=== PATIENT | male | born 1940 | race Caucasian/White ===

== ENCOUNTER 2016-12-12 17:12 | Emergency (ER) | payer MEDICARE ==
[~2016-12-12] VITALS: Ht 182.9 cm; Wt 95.2 kg
[~2016-12-12 17:12] MED LIST: ASPIRIN EC81 MG PO; CALCIUM 500 MG1 EAC1 PO; COZAAR25 MG PO; DAILY MULTIPLE1 EACH PO; FISH OIL 1,0001 EAC2 NG; GLUCOSAMINE1000 MG PO; ICAPS AREDS SO1 EACH PO; LIPITOR20 MG PO; OMEPRAZOLE20 MG PO; VITAMIN D5000 UNIT PO
[2016-12-12] MEDS ORDERED: FINASTERIDE5 MG PO (17:37)
[2016-12-12] MEDS ORDERED: NORCO 5-325 TA1 EACH PO (20:01)
[2017-01-11] MEDS ORDERED: ULTRAM50 MG PO (13:13)
== END 2016-12-12 20:10 | disposition home or self-care (01) ==
LOC: ED 17:12
DX: N13.2 Hydronephrosis with renal and ureteral calculous obstruction (principal); Z88.1 Allergy status to other antibiotic agents; Z88.8 Allergy status to other drugs, medicaments and biological substances; Z79.899 Other long term (current) drug therapy; Z79.82 Long term (current) use of aspirin
CPT/HCPCS: 74176; 80053; 81001; 85025; 96361; 96374; 96375; 99284; J1885; J2405; J7030

== ENCOUNTER 2017-01-31 07:20 | Day surgery (SDC) | payer MEDICARE ==
[~2017-01-31] VITALS: Ht 182.9 cm; Wt 97.5 kg
[~2017-01-31 07:20] MED LIST changes: +FINASTERIDE5 MG PO; +NORCO 5-325 TA1 EACH PO; +ULTRAM50 MG PO
[2017-01-31] MEDS ORDERED: IBUPROFEN600 MG PO (11:25)
[2017-01-31] MEDS ORDERED: OXYCODON-ACETA1 EAC2 PO (11:26)
[2017-01-31] MEDS ORDERED: MAPAP325 MG PO (11:26)
--- NOTE | 2017-01-31 11:26 | NUR ---
01/31/17 1126 Lisa Blackwell PT O2 100%, O2 DECREASED TO 6L VIA MASK
--- NOTE | 2017-01-31 12:19 | NUR ---
LE 1145 PT RETURNED FROM PACU WIDE AWAKE C/O 4/10 PAIN IN R GROIN. 1200 NEW ORDERS RECEIVED. 1201 DILAUDID 0.5MG GIVEN IVP. PT DRINKING WATER AND EATING CRACKERS/JELLO. 1219 TWO PERCOCET 7.5/325 GIVEN PO. WARM AIR ON PER PT REQUEST.
--- NOTE | 2017-01-31 13:33 | NUR ---
PT UP TO SIT ON SIDE OF BED TO VOID 450ML, CLEAR YELLOW. NO C/OS. PAIN IS BETTER. PO FLUIDS AND CRACKERS AND JELLO GIVEN
--- NOTE | 2017-01-31 13:59 | NUR ---
SOUP GIVEN. MORE ICED WATER GIVEN. HOB ELEVATED. PT SITTING UP IN BED EATING SOUP. SPOUSE @ BS. MABLE TALLEY CONTINUES ON WARM.
--- NOTE | 2017-01-31 14:48 | NUR ---
PT LAYING IN BED, WITH CHINO IN SUPPORT. THEY BOTH SEEMED PREPARED, FEW QUESTIONS. PT REQUESTED PRAYER, WILL FOLLOW ASNEDED
--- NOTE | 2017-01-31 15:31 | NUR ---
LE 1425: PT REQUESTS DC HOME. DC INSTRUCTIONS GIVEN TO PT IN PRESENCE OF SPOUSE AND BOTH VERBALIZE UNDERSTANDING. PT DRESSES SELF AFTER STANDING AT BS AND DENYING DIZZINESS. PT TRANSFERS SELF WELL TO AND IS DC HOME BY TIFFANIE PALAFOX RN VIA .
--- NOTE | 2017-02-01 08:54 | OR ---
[facility] [address] [place], [place] [address] Signed DATE OF OPERATION: 01/31/2017 SURGEON: Aparna Fry MD PREOPERATIVE DIAGNOSIS: Right inguinal hernia. POSTOPERATIVE DIAGNOSIS: Right direct inguinal hernia. PROCEDURE: Repair of right direct inguinal hernia with implantation of Prolene mesh (underlay technique). SURGEON: Aparna Fry MD. ANESTHESIA: General LMA (Pastora Altamirano CRNA) and 10 mL of 0.25% Marcaine with epinephrine local. INDICATION: This 76-year-old, retired [place] is a patient of Dr. Raudel Dominique and noted to have a reducible right inguinal hernia. He has had prostate cancer treatment in the past. He is not having obstructive symptoms with urination at this time. His hernia is reducible and increasingly uncomfortable. He is admitted to undergo repair. The risks of bleeding, infection, recurrence, pain problems, and other unforeseen complications were reviewed in detail. He understands and wished to proceed. FINDINGS: Rather broad-based direct hernia was noted. The cord structures were normal. An ilioinguinal nerve was identified and preserved. Implantation of Prolene mesh in an underlay technique allowed for repair of the hernia. The hernia defect was invaginated into the properitoneal space. There was no sign of incarceration. PROCEDURE: The patient was brought to the operating room, given a general anesthetic by LMA technique. Preoperative antibiotic Ancef was given. Sequential compression device stockings used and heparin subcutaneously administered. The lower abdomen was clipped and prepared with a chlorhexidine solution and draped sterilely. Incision made cephalad to the pubic tubercle on the right side. Dissection was carried through the subcutaneous tissue, which was rather generous. External oblique was incised along its fibers revealing the underlying cord and a bulky type hernia. Ilioinguinal nerve branch was dissected free from the cremasteric muscles of the cord and reflected around the external Electronically Signed By: APARNA FRY MD 02/01/17 0854 PATIENT NAME: АЛЕКСАНДР GALEANA OPERATIVE REPORT DATE OF : 40 PHYSICIAN: APARNA FRY MD REPORT #: [id number] REPORT IS CONFIDENTIAL AND NOT TO BE RELEASED WITHOUT AUTHORIZATION [facility] [address] [place], [place] [address] Signed oblique laterally. Using blunt dissection, cord was mobilized from the floor and encircled with a Kay drain. There was attenuation of the floor contiguous with the cord structure. On that basis, the cremasteric muscle fibers of the cord were incised transversely revealing the hernia sac proper, which was basically a broad-based direct hernia. This was freed completely. There was no sign of indirect hernia sac. Using electrocautery, the attenuated fibers of the fascia of the transversalis were incised and the properitoneal space bluntly developed. A segment of Prolene mesh was cut to the appropriate configuration and secured in an underlay technique with interrupted 2-0 Prolene sutures including the shelving edge of Poupart's ligament laterally and tendon of the transversus abdominis medially. Wide overlap was accomplished. A defect was cut in the graft to accommodate the cord and the tails of the graft were secured with all due care laterally. The ilioinguinal nerve was preserved and not encumbered by sutures or mesh. There was minimal external oblique fascia laterally to allow for closure of the external oblique. 10 mL of 0.25% Marcaine was injected locally in the cord replaced in the canal as was the ilioinguinal nerve. Pravin's layer was reapproximated with interrupted 2-0 Vicryl and skin closed with running subcuticular 3-0 Vicryl. Steri-Strips were applied as was a Mepilex silver sponge dressing and an OpSite. Blood loss was minimal. Complications none. He was extubated without problem, taken to recovery room in good condition. Sponge, needle, and instruments counts reported as correct x3. MD VIN Zambrano/MODL /[id number] cc: Willi Dominique MD Electronically Signed By: APARNA FRY MD 02/01/17 0854 PATIENT NAME: АЛЕКСАНДР GALEANA OPERATIVE REPORT DATE OF : 40 PHYSICIAN: APARNA FRY MD REPORT #: [id number] REPORT IS CONFIDENTIAL AND NOT TO BE RELEASED WITHOUT AUTHORIZATION
== END 2017-01-31 14:37 | disposition home or self-care (01) ==
LOC: DS 07:20
PROVIDERS: Surgery
PROC: 0YU50JZ Supplement Right Inguinal Region with Synthetic Substitute, Open Approach (ICD-10-PCS; principal; 2017-01-31 10:15)
DX: K40.90 Unilateral inguinal hernia, without obstruction or gangrene, not specified as recurrent (principal); M48.061 Spinal stenosis, lumbar region without neurogenic claudication; I10 Essential (primary) hypertension; E78.5 Hyperlipidemia, unspecified; G47.30 Sleep apnea, unspecified; Z86.711 Personal history of pulmonary embolism; Z87.442 Personal history of urinary calculi; Z88.1 Allergy status to other antibiotic agents; Z98.41 Cataract extraction status, right eye; Z98.42 Cataract extraction status, left eye; Z96.621 Presence of right artificial elbow joint; Z96.642 Presence of left artificial hip joint; Z98.890 Other specified postprocedural states; Z85.46 Personal history of malignant neoplasm of prostate; Z99.81 Dependence on supplemental oxygen; Z79.899 Other long term (current) drug therapy
CPT/HCPCS: 00830; C1781; J0690; J1100; J1170; J1644; J2250; J2405; J2704; J3010; J7120